=== PATIENT | female | born 1960 | race Caucasian/White ===

== ENCOUNTER → 2018-03-10 | Outpatient (CLI) | payer MEDICAID ==
[2018-03-10 11:52] LABS: BILIRUBIN,TOTAL 0.2 mg/dL (0.0-1.0); CHOLESTEROL RISK RATIO 4.1; CREATININE, serum 0.89 mg/dL (0.52-1.25); TOTAL PROTEIN 7.2 gm/dL (6.4-8.2)
[2018-03-11 00:09] LABS: URINE MICROALBUMIN 31.2 mg/dL (0.0-1.7)
== END ==
LOC: COL.LAB 10:53
PROVIDERS: Internal Medicine Cardiovascular Disease
DX: E11.65 Type 2 diabetes mellitus with hyperglycemia (principal); E11.29 Type 2 diabetes mellitus with other diabetic kidney complication; E78.01 Familial hypercholesterolemia; I25.10 Atherosclerotic heart disease of native coronary artery without angina pectoris; Z79.4 Long term (current) use of insulin

== ENCOUNTER 2018-03-19 19:05 | Emergency (ER) | payer MEDICAID ==
[~2018-03-19] VITALS: Ht 162.6 cm; Wt 98.2 kg
[2018-03-19 19:07] VITALS: TEMP 98.7
[2018-03-19] MEDS ORDERED: LIORESAL 1010 MG/TAB PO (19:41)
[2018-03-19] MEDS ORDERED: LANTUS SOLOS100 U/ML SQ (19:41)
[2018-03-19] MEDS ORDERED: PROAIR HFA0.09 MG/AC IH (19:41)
[2018-03-19] MEDS ORDERED: PRILOSEC 20MG20 MG PO (19:42)
[2018-03-19] MEDS ORDERED: NORVASC 10MG10 MG PO (19:42)
[2018-03-19] MEDS ORDERED: NOVOLOG FLEX100 U/ML SQ (19:42)
[2018-03-19] MEDS ORDERED: ZESTORETIC 25 M1 TAB PO (19:42)
[2018-03-19] MEDS ORDERED: REPATHA SU140 MG/1 M SQ (19:42)
[2018-03-19] MEDS ORDERED: EFFEXOR-XR150 MG PO (19:43)
[2018-03-19] MEDS ORDERED: ASPIRIN E.C. 8181 MG PO (19:43)
[2018-03-19] MEDS ORDERED: LYRICA 50MG CAP50 MG PO (19:43)
[2018-03-19 20:17] VITALS: BP 192/86; PULSE 83
== END 2018-03-19 20:19 | disposition home or self-care (01) ==
LOC: COL.ER 19:05
DX: T25.212A Burn of second degree of left ankle, initial encounter (principal); E11.9 Type 2 diabetes mellitus without complications; I10 Essential (primary) hypertension; M79.7 Fibromyalgia; E78.5 Hyperlipidemia, unspecified; F17.210 Nicotine dependence, cigarettes, uncomplicated; F43.10 Post-traumatic stress disorder, unspecified; J45.909 Unspecified asthma, uncomplicated; Z23 Encounter for immunization; Z88.1 Allergy status to other antibiotic agents; Z79.4 Long term (current) use of insulin; X19.XXXA Contact with other heat and hot substances, initial encounter; Y92.009 Unspecified place in unspecified non-institutional (private) residence as the place of occurrence of the external cause

== ENCOUNTER → 2018-05-03 | Outpatient (CLI) | payer MEDICAID ==
[~2018-05-03] MED LIST: ASPIRIN E.C. 8181 MG PO; EFFEXOR-XR150 MG PO; LANTUS SOLOS100 U/ML SQ; LIORESAL 1010 MG/TAB PO; LYRICA 50MG CAP50 MG PO; NORVASC 10MG10 MG PO; NOVOLOG FLEX100 U/ML SQ; PRILOSEC 20MG20 MG PO; PROAIR HFA0.09 MG/AC IH; REPATHA SU140 MG/1 M SQ; ZESTORETIC 25 M1 TAB PO
== END ==
LOC: ZCOL.LAB 17:12
DX: L02.31 Cutaneous abscess of buttock (principal)

== ENCOUNTER 2018-06-24 20:02 | Emergency (ER) | payer MEDICAID ==
[~2018-06-24] VITALS: Ht 162.6 cm; Wt 97.7 kg
[2018-06-24 20:06] VITALS: BP 177/81; TEMP 98.6
[2018-06-24 20:45] LABS: BASO # 0.1 (0.0-0.2); BASO % 0.6 % (0.0-2.0); EOS # 0.2 (0.0-0.7); EOS % 1.9 % (0-4.0); GRAN # 6.6 (1.4-6.5); GRAN % 61.3 % (42.2-75.2); HEMATOCRIT 43.4 % (37.0-47.0); HEMOGLOBIN 14.5 g/dl (12.5-16.0); LYMPH # 3.1 (1.2-3.4); LYMPH % 29.1 % (20.0-51.0); MEAN CELL VOLUME 90 fl (80.0-100.0); MEAN CORPUSCULAR HEMOGLOBIN 30 pg (27.0-31.0); MEAN CORPUSCULAR HGB CONC 33 g/dl (33.0-37.0); MEAN PLATELET VOLUME 12.1 fl (7.4-10.4); MONO # 0.7 (0.1-0.6); MONO % 6.8 % (1.7-9.3); PLATELET COUNT 206 K/mm3 (130-400); RED BLOOD COUNT 4.83 M/mm3 (4.10-5.30); REDCELL DISTRIBUTION WIDTH-CV 12.9 % (11.5-14.5)
[2018-06-24 20:56] LABS: BILIRUBIN,TOTAL 0.5 mg/dL (0.0-1.0); CALCIUM 9.7 mg/dL (8.4-10.2); CREATININE, serum 0.91 mg/dL (0.52-1.25); POTASSIUM 3.8 mmol/L (3.4-5.0); TOTAL PROTEIN 7.2 gm/dL (6.4-8.2)
[2018-06-24 21:55] LABS: COLLECTION METHOD CLEAN CATCH
[2018-06-24 22:00] LABS: PH 5 (5-8); SQUAMOUS EPITHELIAL 0-2 /hpf; URINE APPEARANCE Clear; URINE BACTERIA Rare /hpf; URINE BILIRUBIN Negative (NEGATIVE); URINE BLOOD 1+ (NEGATIVE); URINE COLOR Yellow; URINE GLUCOSE Negative (NEGATIVE); URINE KETONE Negative (NEGATIVE); URINE LEUKOCYTE ESTERASE Negative (NEGATIVE); URINE NITRATE Negative (NEGATIVE); URINE PROTEIN(semi-quant) 2+ (NEGATIVE); URINE RBC 0-2 /hpf; URINE UROBILINOGEN Negative (NEGATIVE)
[2018-06-24] MEDS ORDERED: ZOFRAN ODT4 MG PO (22:55)
[2018-06-24] MEDS ORDERED: ULTRAM 50MG TAB50 MG PO (22:55)
[2018-06-24 23:05] VITALS: PULSE 84
== END 2018-06-24 23:05 | disposition home or self-care (01) ==
LOC: COL.ER 20:02
PROVIDERS: Emergency Medicine
DX: S39.011A Strain of muscle, fascia and tendon of abdomen, initial encounter (principal); E11.9 Type 2 diabetes mellitus without complications; I25.10 Atherosclerotic heart disease of native coronary artery without angina pectoris; I10 Essential (primary) hypertension; E78.5 Hyperlipidemia, unspecified; Z86.718 Personal history of other venous thrombosis and embolism; F17.210 Nicotine dependence, cigarettes, uncomplicated; X50.0XXA Overexertion from strenuous movement or load, initial encounter; Z79.4 Long term (current) use of insulin; Y92.096 Garden or yard of other non-institutional residence as the place of occurrence of the external cause

== ENCOUNTER → 2018-11-27 | Outpatient (CLI) | payer MEDICAID ==
[~2018-11-27] MED LIST changes: +ULTRAM 50MG TAB50 MG PO; +ZOFRAN ODT4 MG PO
== END ==
LOC: ZCOL.LAB 17:09
DX: R35.0 Frequency of micturition (principal)

== ENCOUNTER 2018-12-01 21:35 | Emergency (ER) | payer MEDICAID ==
[~2018-12-01] VITALS: Ht 162.6 cm; Wt 95.5 kg
[2018-12-01 21:40] VITALS: TEMP 97.8
[2018-12-01 22:28] LABS: BASO # 0.1 (0.0-0.2); EOS # 0.3 (0.0-0.7); EOS % 2.5 % (0-4.0); GRAN # 5.5 (1.4-6.5); HEMOGLOBIN 15.6 g/dl (12.5-16.0); LYMPH # 3.7 (1.2-3.4); LYMPH % 35.5 % (20.0-51.0); MEAN CELL VOLUME 92 fl (80.0-100.0); MEAN CORPUSCULAR HEMOGLOBIN 30 pg (27.0-31.0); MEAN CORPUSCULAR HGB CONC 33 g/dl (33.0-37.0); MEAN PLATELET VOLUME 12.1 fl (7.4-10.4); MONO # 0.8 (0.1-0.6); MONO % 7.8 % (1.7-9.3); PLATELET COUNT 241 K/mm3 (130-400); RED BLOOD COUNT 5.24 M/mm3 (4.10-5.30); REDCELL DISTRIBUTION WIDTH-CV 12.6 % (11.5-14.5)
[2018-12-01 22:37] LABS: ALANINE AMINOTRANSFERASE 13 U/L (9-52); ALBUMIN 4.2 gm/dL (3.5-5.0); ALKALINE PHOSPHATASE 93 U/L (50-136); ANION GAP 10 mmol/L (7-16); AST,SGOT 21 U/L (15-37); BILIRUBIN,TOTAL 0.3 mg/dL (0.0-1.0); BLOOD UREA NITROGEN 15 mg/dL (7-17); CALCIUM 9.5 mg/dL (8.4-10.2); CARBON DIOXIDE 29 mmol/L (22-30); CHLORIDE 103 mmol/L (98-107); CREATININE, serum 1.07 (0.52-1.25); GLUCOSE 161 mg/dL (74-106); SODIUM 143 mmol/L (137-145); TOTAL PROTEIN 7.6 gm/dL (6.4-8.2)
[2018-12-01 22:48] LABS: TROPONIN-I < 0.012 ng/mL (0.000-0.035)
[2018-12-01 23:02] LABS: INR 0.9 (0.8-3.0); PROTHROMBIN TIME 10.6 SECONDS (9.7-12.8)
[2018-12-02 01:15] VITALS: BP 161/84; PULSE 66
== END 2018-12-02 01:25 | disposition home or self-care (01) ==
LOC: COL.ER 21:35
PROVIDERS: Emergency Medicine
DX: I10 Essential (primary) hypertension (principal); R07.89 Other chest pain; J44.9 Chronic obstructive pulmonary disease, unspecified; E78.5 Hyperlipidemia, unspecified; F17.210 Nicotine dependence, cigarettes, uncomplicated; Z95.5 Presence of coronary angioplasty implant and graft; Z79.82 Long term (current) use of aspirin; Z79.4 Long term (current) use of insulin
CPT/HCPCS: J2405; Q9967

== ENCOUNTER 2018-12-04 16:00 | Emergency (ER) | payer MEDICAID ==
[~2018-12-04] VITALS: Ht 162.6 cm; Wt 93.2 kg
[2018-12-04 16:07] VITALS: TEMP 97
[2018-12-04 16:45] LABS: COLLECTION METHOD CLEAN CATCH
[2018-12-04 16:49] LABS: BASO # 0.1 (0.0-0.2); BASO % 0.3 % (0.0-2.0); EOS # 0.1 (0.0-0.7); EOS % 0.5 % (0-4.0); GRAN # 13.4 (1.4-6.5); GRAN % 80.1 % (42.2-75.2); HEMATOCRIT 50.9 % (37.0-47.0); HEMOGLOBIN 16.8 g/dl (12.5-16.0); LYMPH # 2.3 (1.2-3.4); LYMPH % 13.9 % (20.0-51.0); MEAN CELL VOLUME 92 fl (80.0-100.0); MEAN CORPUSCULAR HEMOGLOBIN 30 pg (27.0-31.0); MEAN CORPUSCULAR HGB CONC 33 g/dl (33.0-37.0); MEAN PLATELET VOLUME 12.2 fl (7.4-10.4); MONO # 0.8 (0.1-0.6); MONO % 4.8 % (1.7-9.3); PLATELET COUNT 237 K/mm3 (130-400); RED BLOOD COUNT 5.55 M/mm3 (4.10-5.30); REDCELL DISTRIBUTION WIDTH-CV 12.6 % (11.5-14.5)
[2018-12-04 16:55] LABS: PH 5 (5-8); SQUAMOUS EPITHELIAL 0-2 /hpf; URINE APPEARANCE Clear; URINE BACTERIA Rare /hpf; URINE BILIRUBIN Negative (NEGATIVE); URINE BLOOD 1+ (NEGATIVE); URINE COLOR Yellow; URINE GLUCOSE 3+ (NEGATIVE); URINE KETONE Negative (NEGATIVE); URINE LEUKOCYTE ESTERASE Negative (NEGATIVE); URINE NITRATE Negative (NEGATIVE); URINE PROTEIN(semi-quant) 1+ (NEGATIVE); URINE RBC 0-2 /hpf; URINE UROBILINOGEN Negative (NEGATIVE)
[2018-12-04 17:05] LABS: ALANINE AMINOTRANSFERASE 8 U/L (9-52); ALBUMIN 4.2 gm/dL (3.5-5.0); ALKALINE PHOSPHATASE 80 U/L (50-136); ANION GAP 11 mmol/L (7-16); AST,SGOT 27 U/L (15-37); BILIRUBIN,TOTAL 0.3 mg/dL (0.0-1.0); BLOOD UREA NITROGEN 21 mg/dL (7-17); C-REACTIVE PROTEIN 1.5 mg/dL (0.0-0.9); CALCIUM 9.3 mg/dL (8.4-10.2); CARBON DIOXIDE 29 mmol/L (22-30); CHLORIDE 100 mmol/L (98-107); CREATININE, serum 0.98 (0.52-1.25); GLUCOSE 197 mg/dL (74-106); POTASSIUM 4.4 mmol/L (3.4-5.0); SODIUM 140 mmol/L (137-145); TOTAL PROTEIN 7.7 gm/dL (6.4-8.2)
[2018-12-04 17:24] LABS: TROPONIN-I < 0.012 ng/mL (0.000-0.035)
[2018-12-04] MEDS ORDERED: ANTIVERT 25MG25 MG PO (18:26)
[2018-12-04 18:51] VITALS: BP 132/76; PULSE 80
== END 2018-12-04 18:53 | disposition home or self-care (01) ==
LOC: COL.ER 16:00
PROVIDERS: Emergency Medicine
DX: D72.829 Elevated white blood cell count, unspecified (principal); R42 Dizziness and giddiness; E11.9 Type 2 diabetes mellitus without complications; I10 Essential (primary) hypertension; F17.210 Nicotine dependence, cigarettes, uncomplicated; Z79.4 Long term (current) use of insulin; Z79.82 Long term (current) use of aspirin
CPT/HCPCS: J2060; J2405; J7030

== ENCOUNTER → 2019-02-07 | Outpatient (CLI) | payer MEDICAID ==
[~2019-02-07] MED LIST changes: +ANTIVERT 25MG25 MG PO
== END ==
LOC: COL.RAD 14:47
DX: J44.9 Chronic obstructive pulmonary disease, unspecified (principal)

== ENCOUNTER → 2019-02-15 | Outpatient (CLI) | payer MEDICAID | LOC: COL.PUL 07:55 | DX: F17.200 Nicotine dependence, unspecified, uncomplicated (principal) ==

== ENCOUNTER → 2019-02-19 | Outpatient (CLI) | payer MEDICAID | LOC: MC.RAD 15:44 | DX: Z12.31 Encounter for screening mammogram for malignant neoplasm of breast (principal) ==

== ENCOUNTER 2019-03-11 00:06 | Emergency (ER) | payer MEDICAID ==
[~2019-03-11] VITALS: Ht 157.5 cm; Wt 90.9 kg
[~2019-03-11 00:06] MED LIST changes: -HUMALOG PEN100 U/ML SQ; -PLAVIX 75MG TAB75 MG PO
[2019-03-11 00:13] VITALS: BP 142/63; TEMP 96.7
[2019-03-11] MEDS ORDERED: HUMALOG PEN100 U/ML SQ (01:18)
[2019-03-11] MEDS ORDERED: LANTUS SOLOS100 U/ML SQ (01:19)
[2019-03-11] MEDS ORDERED: PLAVIX 75MG TAB75 MG PO (02:20)
[2019-03-11 02:53] VITALS: PULSE 82
== END 2019-03-11 02:58 | disposition home or self-care (01) ==
LOC: COL.ER 00:06
DX: M79.662 Pain in left lower leg (principal); E11.9 Type 2 diabetes mellitus without complications; F43.10 Post-traumatic stress disorder, unspecified; F32.9 Major depressive disorder, single episode, unspecified; J45.909 Unspecified asthma, uncomplicated; F17.210 Nicotine dependence, cigarettes, uncomplicated; Z79.4 Long term (current) use of insulin; Z90.710 Acquired absence of both cervix and uterus; X50.1XXA Overexertion from prolonged static or awkward postures, initial encounter
CPT/HCPCS: J1650; J1885

== ENCOUNTER → 2019-03-11 | Outpatient (CLI) | payer MEDICAID ==
[~2019-03-11] MED LIST changes: +HUMALOG PEN100 U/ML SQ; +PLAVIX 75MG TAB75 MG PO
== END ==
LOC: COL.RAD 09:16
DX: M79.605 Pain in left leg (principal); R79.1 Abnormal coagulation profile

== ENCOUNTER → 2019-03-28 | Outpatient (CLI) | payer MEDICAID ==
[~2019-03-28] VITALS: Ht 163.8 cm; Wt 97.0 kg
[~2019-03-28] MED LIST changes: +HUMALOG PEN100 U/ML SQ; +PLAVIX 75MG TAB75 MG PO
[2019-03-28 10:40] VITALS: BP 199/97; PULSE 80
[2019-03-28 12:11] VITALS: BP 172/72; PULSE 84
[2019-03-28 12:12] VITALS: BP 165/80; PULSE 78
[2019-03-28 12:13] VITALS: BP 173/79; PULSE 75
[2019-03-28 12:14] VITALS: BP 148/65; PULSE 76
== END ==
LOC: COL.CARD 10:31
DX: R07.9 Chest pain, unspecified (principal); R06.02 Shortness of breath; I10 Essential (primary) hypertension
CPT/HCPCS: A9500; J2785

== ENCOUNTER 2019-05-14 08:00 | Day surgery (SDC) | payer MEDICAID ==
[2019-05-14] VITALS (11 sets, daily range): BP systolic 130–179; BP diastolic 62–102; PULSE 69–75; TEMP 98.3
[~2019-05-14] VITALS: Ht 165.1 cm; Wt 95.6 kg
[2019-05-14 08:51] LABS: HEMATOCRIT 45.5 % (37.0-47.0); HEMOGLOBIN 15.2 g/dl (12.5-16.0); MEAN CELL VOLUME 90 fl (80.0-100.0); MEAN CORPUSCULAR HEMOGLOBIN 30 pg (27.0-31.0); MEAN CORPUSCULAR HGB CONC 33 g/dl (33.0-37.0); MEAN PLATELET VOLUME 11.9 fl (7.4-10.4); PLATELET COUNT 222 K/mm3 (130-400); RED BLOOD COUNT 5.04 M/mm3 (4.10-5.30); REDCELL DISTRIBUTION WIDTH-CV 12.6 % (11.5-14.5)
[2019-05-14 08:56] LABS: INR 0.9 (0.8-3.0); PROTHROMBIN TIME 10.7 SECONDS (9.7-12.8)
[2019-05-14 08:59] LABS: PARTIAL THROMBOPLASTIN TIME 30.7 SECONDS (26.0-37.0)
[2019-05-14 09:20] LABS: CALCIUM 8.9 mg/dL (8.4-10.2); CREATININE, serum 0.89 (0.52-1.25); POTASSIUM 4.3 mmol/L (3.4-5.0)
[2019-05-14] MEDS ORDERED: BUSPAR5 MG PO (09:33)
[2019-05-14] MEDS ORDERED: LIPITOR 80MG80 MG PO (09:33)
[2019-05-14] MEDS ORDERED: NYSTATIN POWDER30 GM TOP (09:35)
[2019-05-14] MEDS ORDERED: LIORESAL 1010 MG/TAB PO (09:35)
[2019-05-14] MEDS ORDERED: COREG 3.123.125 MG/T PO (09:36)
[2019-05-14] MEDS ORDERED: LYRICA 100MG C100 M1 PO (09:37)
[2019-05-14] MEDS ORDERED: OZEMPIC1 MG/0.75 SQ (09:38)
[2019-05-14] MEDS ORDERED: HCTZ 25MG TAB25 MG PO (09:40)
[2019-05-14] MEDS ORDERED: FOLIC ACID 11 MG/TA1 PO (09:41)
[2019-05-14] MEDS ORDERED: COZAAR 50MG50 MG/TAB PO (09:41)
--- NOTE | 2019-05-14 10:44 | NUR ---
SEE MERGE DOCUMENTATION FOR MEDICATION ADMINISTRATION TIMES AND INTRA/POST PROCEDURE SEDATION ASSESSMENTS.
--- NOTE | 2019-05-14 11:50 | NUR ---
pt is back from photo lab manager, pt is awake and alert, p,w,d, sr 70's on monitor, rt femoral access dressed with dry and clean gauze dressing with tegaderm, angioseal closure device employed. cms intact to rle with no bleeding or hematoma noted. wctm
--- NOTE | 2019-05-14 15:15 | NUR ---
Pt is ready for discharge. she has been able to void with no problem on the bedpan, has been able to eat and drink with no problem. after 3 hrs bedrest, pt was able to sit at edge of bed, ambulate to br with steady gait without any bleeding or hematoma formation at rt groin site. cms remains intact distal. I reviewed dc, and f/u instructions with pt and she denied any concerns at time of departure. 20g saline lock to lac was dc'd with cath intact, dressing was applied. She is escorted to exit via wheelchair, son driving her home.
== END 2019-05-14 17:44 | disposition home or self-care (01) ==
LOC: COL.CAR 08:00
PROVIDERS: Internal Medicine Cardiovascular Disease
DX: I25.10 Atherosclerotic heart disease of native coronary artery without angina pectoris (principal); F17.210 Nicotine dependence, cigarettes, uncomplicated; F17.200 Nicotine dependence, unspecified, uncomplicated; E11.9 Type 2 diabetes mellitus without complications; Z79.4 Long term (current) use of insulin; Z79.899 Other long term (current) drug therapy; Z79.02 Long term (current) use of antithrombotics/antiplatelets
CPT/HCPCS: J0153; J1644; J2250; J3010; Q9967

== ENCOUNTER 2019-08-31 18:52 | Emergency (ER) | payer MEDICAID ==
[~2019-08-31] VITALS: Ht 162.6 cm; Wt 95.5 kg
[~2019-08-31 18:52] MED LIST changes: +BUSPAR5 MG PO; +COREG 3.123.125 MG/T PO; +COZAAR 50MG50 MG/TAB PO; +FOLIC ACID 11 MG/TA1 PO; +HCTZ 25MG TAB25 MG PO; +LIPITOR 80MG80 MG PO; +LYRICA 100MG C100 M1 PO; +MUCINEX1200 MG PO; +NYSTATIN POWDER30 GM TOP; +OZEMPIC1 MG/0.75 SQ; +TESSALON P100 MG/CAP PO; +ZYRTEC 10MG10 MG PO
[2019-08-31 19:14] VITALS: BP 179/75; TEMP 98.1
[2019-08-31] MEDS ORDERED: NAPROXEN 3375 MG/TAB PO (19:48)
[2019-08-31] MEDS ORDERED: NORCO 325 MG-51 TAB PO (19:48)
[2019-08-31 20:18] VITALS: PULSE 81
== END 2019-08-31 20:20 | disposition home or self-care (01) ==
LOC: COL.ER 18:52
DX: M54.42 Lumbago with sciatica, left side (principal); E11.9 Type 2 diabetes mellitus without complications; Z79.4 Long term (current) use of insulin; Z79.82 Long term (current) use of aspirin
CPT/HCPCS: J1885

== ENCOUNTER 2019-10-17 14:06 | Emergency (ER) | payer MEDICAID ==
[~2019-10-17] VITALS: Ht 162.6 cm; Wt 90.9 kg
[~2019-10-17 14:06] MED LIST changes: +NAPROXEN 3375 MG/TAB PO; +NORCO 325 MG-51 TAB PO
[2019-10-17 14:14] VITALS: TEMP 98
[2019-10-17] MEDS ORDERED: CRUTCHES MC (15:30)
[2019-10-17 15:45] VITALS: BP 136/82; PULSE 87
== END 2019-10-17 15:45 | disposition home or self-care (01) ==
LOC: COL.ER 14:06
DX: S90.32XA Contusion of left foot, initial encounter (principal); I10 Essential (primary) hypertension; E11.9 Type 2 diabetes mellitus without complications; J45.909 Unspecified asthma, uncomplicated; E78.5 Hyperlipidemia, unspecified; F17.210 Nicotine dependence, cigarettes, uncomplicated; Z79.4 Long term (current) use of insulin; W20.8XXA Other cause of strike by thrown, projected or falling object, initial encounter; Y92.009 Unspecified place in unspecified non-institutional (private) residence as the place of occurrence of the external cause

== ENCOUNTER 2021-08-02 15:37 | Inpatient (IN) | payer MEDICAID ==
[~2021-08-02] VITALS: Ht 157.5 cm; Wt 82.7 kg
[~2021-08-02 15:37] MED LIST changes: +CRUTCHES MC
[2021-08-02 16:31] LABS: COLLECTION METHOD CATHETER
[2021-08-02 16:40] LABS: MUCOUS Present (NOT PRESENT); PH 5 (5-8); SQUAMOUS EPITHELIAL 0-2 /hpf (0-10); URINE APPEARANCE Turbid (CLEAR/HAZY); URINE BACTERIA Occasional /hpf (NONE SEEN); URINE BILIRUBIN Negative (NEGATIVE); URINE BLOOD Negative (NEGATIVE); URINE COLOR Amber (YELLOW); URINE GLUCOSE 1+ (NEGATIVE); URINE KETONE Negative (NEGATIVE); URINE LEUKOCYTE ESTERASE 3+ (NEGATIVE); URINE NITRATE Positive (NEGATIVE); URINE PROTEIN(semi-quant) 3+ (NEGATIVE); URINE UROBILINOGEN >=4.0 (NEGATIVE)
[2021-08-02 16:52] LABS: MEAN CELL VOLUME 80 fl (80.0-100.0); MEAN CORPUSCULAR HGB CONC 30 g/dl (33.0-37.0); MEAN PLATELET VOLUME 12.2 fl (7.4-10.4); PLATELET COUNT 420 K/mm3 (130-400); RED BLOOD COUNT 3.11 M/mm3 (4.10-5.30); REDCELL DISTRIBUTION WIDTH-CV 18.5 % (11.5-14.5)
[2021-08-02 16:54] LABS: HEMOGLOBIN 7.4 g/dl (12.5-16.0); MEAN CORPUSCULAR HEMOGLOBIN 24 pg (27-31)
[2021-08-02 17:09] LABS: ALBUMIN 1.3 gm/dL (3.4-4.8); BILIRUBIN,TOTAL 0.6 mg/dL (0.2-1.2); CALCIUM 8.1 mg/dL (8.4-10.2); CREATININE, serum 0.85 mg/dL (0.57-1.11); POTASSIUM 3.3 mmol/L (3.5-4.5); TOTAL PROTEIN 6.1 gm/dL (6.2-8.1)
[2021-08-02 17:10] LABS: BAND 12 % (0-10); EOSINOPHIL 1 % (0-4); LYMPHOCYTE 7 % (20.0-51.0); NEUTROPHILS 74 % (42.0-75.2); PLATELET ESTIMATE INCREASED (NORMAL)
[2021-08-02 17:11] LABS: ANISOCYTOSIS 1+; HYPOCHROMIA 2+; MICROCYTOSIS 1+
[2021-08-02 17:15] LABS: TROPONIN-I 0.01 ng/mL (0.00-0.033)
[2021-08-02] MEDS ORDERED: PRINIVIL10 MG PO (18:04)
[2021-08-02] MEDS ORDERED: TAZTIA180 (18:07)
[2021-08-02] MEDS ORDERED: BUSPAR DIVIDOSE15 MG PO (18:08)
[2021-08-02] MEDS ORDERED: BUSPAR DIVIDOSE15 MG (18:08)
[2021-08-02] MEDS ORDERED: NEURONTIN100 MG/CAP PO ×2 (18:09→23:38)
[2021-08-02 19:18] LABS: MAGNESIUM 1.9 mg/dL (1.6-2.6)
[2021-08-02 19:20] LABS: SALICYLATE < 5.0 mg/dL (15.0-30.0)
--- NOTE | 2021-08-02 21:06 | NUR ---
PT TRANSFERED FROM ED TO ROOM 313.
[2021-08-02 21:09] VITALS: BP 140/52; PULSE 76; TEMP 98
--- NOTE | 2021-08-02 21:12 | NUR ---
Pt blood sugar 70, notified provider. Verbal orders to implement hypoglycemic protocol.
[2021-08-02 21:50] LABS: INR 1.6 (0.8-3.0); PROTHROMBIN TIME 17.8 SECONDS (9.7-12.8)
[2021-08-02] MEDS ORDERED: CARDIZEM CD 12120 MG PO (22:42)
[2021-08-02] MEDS ORDERED: LYRICA 100MG C100 M1 PO (22:46)
[2021-08-02] MEDS ORDERED: NEXIUM 20MG20 MG PO (22:47)
[2021-08-02] MEDS ORDERED: JANUVIA 100MG100 MG PO (22:49)
[2021-08-02] MEDS ORDERED: IMDUR 30MG30 MG/TAB PO (22:51)
[2021-08-02] MEDS ORDERED: TRELEGY ELLIPT1 EACH IH (22:52)
[2021-08-02] MEDS ORDERED: VESICARE10 MG PO (22:53)
[2021-08-02 23:32] VITALS: BP 158/60; PULSE 89; TEMP 97.6
[2021-08-03] VITALS (9 sets, daily range): BP systolic 138–161; BP diastolic 55–67; PULSE 86–106; TEMP 97.5–98.8
--- NOTE | 2021-08-03 00:23 | NUR ---
Pt moved to floor from ED around 2100. Utilized sliding board and a 4 person assist to slide pt from [facility] over to bed. Pt is lethargic and drowsy. When asked to tell her name/birthday or where she is she does not respond, but will open her eyes to speech.sound. Pt will answer some questions and not answer others. It was difficult to fully complete the assessment intake because pt would not answer many questions. Spoke with the pt's "" (is what he titled himself) on the phone. He appeared to be quite upset and discussed the pt's recent health issues. Stated pt was in a care home after recently leaving [facility] and that the pt had 3 falls, in which she had to crawl back to her bed by herself. States he now has the pt living at home with him since 07/30 and has contacted adult protective servies in regards to the care home. I also spoke witht the pt's sister Kaylyn, who wanted an update. I attempted to contact the pt's daughter Rosa jimenez, in regards to the pt's code status. It was reported to me that she is the pt's DPOA. Completed the intake assessment and admission assessment. COVID screen and infectious disease completed. Reviewed med rx with provider, as well as with what medications the was sent in with. According to the , the pt is on more medications that what was brought, or some of the medications brought with her are incorrect. Stated he would bring an updated list. Pt is unable to answer any questions in regards to her medications. Pt has been made NPO, because she is not awake enough to orally take anything. Vital signs were stable on arrival, FSBS was 70. Notified provider, who ordered D5 with 20 mEq of potassium to be hung and ran. Reassessed pt's sugar and it increased to 91. No significant skin issues noted. Noted some generalized scattered bruising on the BLE/BUE. No edema noted. Lung sounds are clear. S1S2 heart sounds noted. Hypoactive bowel sounds. Abdomen is soft, but pt grimmaced slightly to palpation. When I asked pt if she was in pain she denied. No edema noted. Pt is incontinent of bowel and bladder. Pt has had 1 heavy incontinent void so far into brief. Urine was yellow. Placed purewick on pt to get a more accurate I&O. Pt remains NPO. Pt is able to follow commands, such as squeezing hands, but falls back asleep quickly. Can move self around in bed slightly. Will continue to turn pt every 2 hours. Q4 neuro checks continue and Q4 blood sugar checks continue. Pt is satting in 90's on 4L NC. Was reported that this is baseline for pt at home and that she wears a CPAP at night. Pt currently is resting with CPAP on. Will continue to monitor.
--- NOTE | 2021-08-03 03:53 | NUR ---
Pt has not had another void since 2352. Pt was bladder scanned by clinical nursing manager, and found that pt has 375 in bladder. Notified the provider. Provider made no changes/interventions at this time. Will continue to monitor.
--- NOTE | 2021-08-03 05:11 | NUR ---
Pt remains in a lethargic/drowsy state this morning, as well as overnight. Opens eyes to speech/sound, but quickly falls back asleep. Pt only answers a few questions. Is able to nod head to respond. Speech is difficult to understand. Blood sugars have remained stable, last sugar was 122. Vital signs stable. HR 70-80's. BP running a little elevated. RR 16-18. Pt remains on 4L NC. Wore CPAP machine from home overnight. O2 sats remain above 90% overnight. D5 with 20 mEq of potassium continues to run. Pt remains NPO, is not awake enough for oral intake. Still have not heard back from Lora (daughter/DPOA) regarding the pt's code status. Pt only had one large void overnight around 0000. Notified provider and no new changes were made, will continue to watch UO. No new concerns, will continue to monitor.
--- NOTE | 2021-08-03 06:34 | NUR ---
Notified Dr. Busby of oncology consult.
--- NOTE | 2021-08-03 06:58 | NUR ---
Pt had 375 out into [facility].
[2021-08-03 07:05] LABS: MEAN CELL VOLUME 80 fl (80.0-100.0); MEAN CORPUSCULAR HGB CONC 29 g/dl (33.0-37.0); MEAN PLATELET VOLUME 12.6 fl (7.4-10.4); PLATELET COUNT 411 K/mm3 (130-400); RED BLOOD COUNT 2.86 M/mm3 (4.10-5.30); REDCELL DISTRIBUTION WIDTH-CV 18.6 % (11.5-14.5)
[2021-08-03 07:10] LABS: HEMOGLOBIN 6.7 g/dl (12.5-16.0); MEAN CORPUSCULAR HEMOGLOBIN 23 pg (27-31)
[2021-08-03 07:21] LABS: ALBUMIN 1.2 gm/dL (3.4-4.8); CALCIUM 7.6 mg/dL (8.4-10.2); CREATININE, serum 0.81 mg/dL (0.57-1.11); POTASSIUM 3.5 mmol/L (3.5-4.5); TOTAL PROTEIN 5.7 gm/dL (6.2-8.1)
[2021-08-03 07:47] LABS: BILIRUBIN,TOTAL 0.6 mg/dL (0.2-1.2)
[2021-08-03 08:05] LABS: BAND 12 % (0-10); EOSINOPHIL 1 % (0-4); HYPOCHROMIA 2+; LYMPHOCYTE 4 % (20.0-51.0); NEUTROPHILS 77 % (42.0-75.2); PLATELET ESTIMATE NORMAL (NORMAL)
[2021-08-03 08:06] LABS: ANISOCYTOSIS 2+; OVALOCYTES 1+
--- NOTE | 2021-08-03 11:44 | NUR ---
Call made to patient's daughter and DPOA, Rosa ([phone]). She confirmed she lives in [place] and will not be coming back unless the patient takes a turn for the worse. She is under the impression that her mother has stage 2 pancreatic cancer with liver involvement and that she was admitted here for being unresponsive for her father at home. We discussed her mother's current status and Katia confirmed that her mother would wish to be a full code and persue treatment if available. We discussed that in her current state, she is not a chemo candidate. Rosa verbalized understanding and we discussed if we continue the current treatment plan here or if we need to discuss hospice. Rosa would like to continue treatment for a few days to see if her mother has an improvement but if not, is willing to talk more about hospice. Rosa is also concerned that her father would really like the patient to be cared for at home. We discussed that in her current state, she would need 24/7 care and if Will is unable to provide that, he would need to hire someone to fill in. Rosa states that is not financially manageable. She also asked if she would be able to have her mother placed in a facility since she is DPOA. I explained that if her mother is unable to make a decision about placement for herself, that would fall to her as her DPOA. Katia expressed concern that she will need to fight her dad on that and I offered to call and talk with him. She verbalized agreeance of that plan. I also offered to have the hospitalist call her with an update today and she again verbalized acceptance of that. Discussed conversation with care team and SW.
--- NOTE | 2021-08-03 11:51 | NUR ---
Call made to patient's , Jose ([phone]). He is very frustrated with the care Michelle has received at other facilities. He also states that he doesn't have a great relationship with his daughter, Lora. I encouraged him to attempt to talk with Lora about Michelle's condition and wishes. He told me that they only got d/t social security issues and that they have remained together and he has cared for her as best he could. He reports that he has set up home health equipment and would only need a hospital bed if he were to be able to bring the patient home again. He mentioned he hurt his back so we discussed that the patient requires extensive physical care at this time so home may not be a safe options for both of them. We also discussed the hospice house if the patient doesn't make any improvements. He is happy to have me keep him updated and see how she does. He understands that decisions are going to be made through his daughter and is not happy about it but is accepting of the situation. I gave him my contact information. Updated care team and SW of conversation.
--- NOTE | 2021-08-03 13:42 | NUR ---
PT DROWSY, RESTING IN BED. MEDICATIONS GIVEN PER eMAR. SHIFT ASSESSMENT COMPLETED. PT RESPONDS TO A FEW QUESTIONS, DOES NOT ANSWER ORIENTATION QUESTIONS. IS ABLE TO MOVE EXTREMITIES ON BED. CURRENTLY ON O2 AT 3L VIA NC. WILL CONTINUE TO MONITOR. PUREWICK IN PLACE. CONSENT FOR 1 UNIT PRBC OBTAINED FROM LOUISE DAUGHTER. PLAN TO TRANSFUSE SOON.
--- NOTE | 2021-08-03 15:57 | NUR ---
Selector Packer collaborated with Palliative, EVANS Evans who is consulted for patient. Cristina has talked with patient's family and they are interested in the [facility]. Patient is not a candidate for chemotherapy at this time. Cristina spoke with patient's daughter, Katia and patient's life partner, Jose. Will was upset that patient completed a DPOA-HC at [facility] designating their daughter, Katia. JUDIT contacted the [facility] and requested a copy of patient's DPOA-HC. SW received copy and placed it on the chart. SW confirmed it designates Katia. SW contacted Katia to discuss discharge planning. Katia advised patient lives in [place] with Will. Patient is not legally to Will, but they have been together for many years. Will is also Katia's father. Katia is not sure who patient's primary care physician is. Katia expressed interest in [facility] and advised this is where she and Will have agreed on. JUDIT contacted Adult Protective Services as Will had told the Hospitalist that APS has an open case for patient. [place] APS JUDIT advised she did not have a case with patient but would look her up once back in her office. JUDIT was contacted by Chris, Reservoir Caretaker with [facility] who advised he has been working with patient for quite some time and does not feel home is a safe option for patient, which he has expressed to Will. Chris advised that patient was in a hospital at [place] then discharged to [facility] on 07/29/21. Chris advised Will took patient out on 07/30/21 before patient was even there 24 hours. Chris advised Will reported patient had multiple falls at [facility] and that APS actually advised he take her home. Chris questions if this is accurate and that he and staff at [facility] made reports to APS with concerns about patient returning home. JUDIT contacted [facility] and faxed referral. Discharge Plan: [facility] pending acceptance
[2021-08-04] VITALS (7 sets, daily range): BP systolic 136–169; BP diastolic 48–73; PULSE 97–109; TEMP 97.4–98.4
--- NOTE | 2021-08-04 01:08 | NUR ---
Pt was more alert at the beginning of this evening, asleep now. Pt responded to more questions, such as if she was in pain or comfortable, but still cannot tell me her name or where she is. Pt only answers certain questions. Pt is still drowsy, in and out of sleep, sleeping currently. Pt is alert to speech/noise and follows commands. Pt has denied pain. Incontinent of bowel and bladder. Good urine output into the [facility] [place] cannister so far. Continuing to turn pt every 2 hours and perform incontinent care. Pt continues to have IV fluids running. Vital signs are stable. Blood sugars are elevated this evening at 224 and 222. Notified the provider, who had me decrease the D5 rate from 100 ml/hr to 50 ml/hr. Pt has had poor oral intake. Took only a few bites of dinner and was told in report she only took a few bites of lunch when encouraged. Encouraging frequent oral intake. Pt reports no questions. Will continue to monitor.
--- NOTE | 2021-08-04 05:07 | NUR ---
No significant changes overnight. Pt continues to be drowsy/sleeping all night. Does not respond to me when I ask where she is or what her name is, but responds if I ask her if she is in pain. Is alert to speech. Adueqtae urine output overnight. Encouraged fluid intake when possible. Pt when grimmacing this morning and moaning. I asked if she was in pain and she said "yes" and was grabbing her abdominal area. Administered prn tylenol and pt was able to comfortably fall back asleep, no new reports of pain this morning. Vital signs stable. BP runs elevated. Blood suagrs are still elevated. Pt is still continuing on the D5 with 20 mEq of potassium, but at a rate of 50 ml/hr instead of 100 ml/hr. Pt still has poor oral intake, will not eat/drink unless encouraged by staff. Pt was able to tolerate the PO tylenol pills and water well. Pt reports no questions. Will continue to monitor.
[2021-08-04 06:03] LABS: MEAN CELL VOLUME 80 fl (80.0-100.0); MEAN CORPUSCULAR HGB CONC 30 g/dl (33.0-37.0); MEAN PLATELET VOLUME 12.2 fl (7.4-10.4); PLATELET COUNT 389 K/mm3 (130-400); RED BLOOD COUNT 3.36 M/mm3 (4.10-5.30); REDCELL DISTRIBUTION WIDTH-CV 17.3 % (11.5-14.5)
[2021-08-04 06:10] LABS: HEMATOCRIT 26.8 % (37.0-47.0); HEMOGLOBIN 8.1 g/dl (12.5-16.0); MEAN CORPUSCULAR HEMOGLOBIN 24 pg (27-31)
[2021-08-04 06:36] LABS: ALBUMIN 1.2 gm/dL (3.4-4.8); CALCIUM 7.5 mg/dL (8.4-10.2); CREATININE, serum 0.77 mg/dL (0.57-1.11); POTASSIUM 3.8 mmol/L (3.5-4.5); TOTAL PROTEIN 5.6 gm/dL (6.2-8.1)
[2021-08-04 06:49] LABS: BAND 4 % (0-10); EOSINOPHIL 1 % (0-4); LYMPHOCYTE 4 % (20.0-51.0)
[2021-08-04 06:50] LABS: ANISOCYTOSIS 2+; HYPOCHROMIA 2+; NEUTROPHILS 83 % (42.0-75.2); PLATELET ESTIMATE NORMAL (NORMAL)
--- NOTE | 2021-08-04 09:33 | NUR ---
PT RESTING IN BED. MORNING MEDICATIONS GIVEN. PT GRIMACES WHEN PALPATING ABD. SHIFT ASSESSMENT COMPLETED. CURRENTLY ON 3L VIA NC. PT ABLE TO ANSWER SOME ORIENTATION QUESTIONS CORRECTLY AND FOLLOWS COMMANDS WELL. PLANNING FOR MRI AND LP THIS AM. WILL CONTINUE TO MONITOR.
--- NOTE | 2021-08-04 11:49 | NUR ---
Received a call from patient's daughter, Katia. She states that she is running into problems because she does not have financial DPOA for her mother and [place] [facility] Katia has been made aware of the planned MRI and LP today and would like those to maybe give her answers about her mothers mental status decline. Katia is also aware that [place] will cover a stay at a nursing facility and was looking at [facility]. Katia does not know her mother's PCP or which home her father chose but did agree to have me call him to get answers. I also offered to have our financial counselor reach out to her in regards to switching [facility] and the financial DPOA issues. Call then made to Jose, the patient's partner. I informed him of her improvement and answering yes/no questions. I also told him there is a plan for MRI and LP today. I then told him of the issues we are running into with [facility] and that placement may be limited to [facility] or [facility] if they are not able to pay out of pocket for [facility]. Jose became very frustrated and stated that he would take her out of any nursing facility and bring her back here to the hospital. I tried to explain that that would revoke her hospice and that we don't provide hospice here either. I also tried to explain that I am worried about his health/back if he were to attempt to care for Michelle at home. Jose again expressed frustration and that he knows his daughter will do what she wants anyway and he is "fucking done" and proceeded to hang up on me. Notified SW of conversations and asked financial counselor to reach out to Katia. Unable to verify PCP or home selection with Will.
--- NOTE | 2021-08-04 12:34 | NUR ---
Received phone call from patient's daugther, Katia. She requests that no information be released to anyone other than her and her father, Will. Notified charge nurse and primary nurse of Katia's concern.
--- NOTE | 2021-08-04 14:48 | NUR ---
Patient moving around in bed and removing oxygen. I stepped in and asked her orientation questions. She was able to tell me she was in the hospital but thought she was in [place]. She requested to talk with Will and to get an iced tea. We also discussed her health condition and her understanding of everything going on. She was able to tell me she had a stage IV pancreatic mass but wasn't sure if she had any treatment options. I informed her that I had been in conversations with Jose and Katia and we had even discussed hospice care. JUDIT Live at bedside and we asked if the patient had any thoughts on placement in a facililty. She asked if there was a place in [place] she could go to because it is closer to [facility]. We also attempted to clarify DPOA but Gutierrezisabel was unable to explain to us what a DPOA is without drifing off and closing her eyes. We told her that we would talk with her more at a later time. I then called Will for her. He expressed gratitude for being able to talk with her and asked me questions about getting the DPOA and home health or home hospice options. I explained that it would be no different than before with the amount of help he has at home and that she was still a little too sleepy to get the DPOA updated but we would discuss it later. Updated SW on questions Will has.
--- NOTE | 2021-08-04 16:40 | NUR ---
Steam Shovel Engineer spoke with patient's daughter, Katia who advised she spoke with [facility] and they cannot take patient's insurance so patient's stay would be private pay with a sliding fee scale. Katia does not want to do this and would like referrals sent to [facility]. JUDIT faxed referrals. [facility] contacted SW and advised they do not have a hospice bed at this time. JUDIT collaborated with Cristina, Palliative RN who advised she got a call from patient's partner, Jose who is very upset about care home placement and does not agree with this. JUDIT contacted Katia who advised she is aware Will is upset, however there is nothing she can do about this and confirmed plan will be for care home placement. JUDIT and Palliative RN met with patient as she has become more alert. Patient expressed interest in [facility] in [place] as this is closer to [place]. Patient stated she was feeling wore out. JUDIT and Cristina attempted to discuss DPOA-HC with patient, however she was not able to verbalize what DPOA-HC means. Discharge Plan: Pending referrals to [facility] and [facility]
--- NOTE | 2021-08-04 20:30 | NUR ---
Initial shift assessment done- drowsy, oriented to person/place not year/time,, pleasant, falling back to sleep, tele on- tachy 108/min ,IV fluids of NS at 75cc/hr, O2 at 4L/nc, denies any pain tonight
[2021-08-05 04:05] VITALS: BP 166/65; PULSE 107; TEMP 98.2
--- NOTE | 2021-08-05 06:39 | NUR ---
Did get some sleep last night, VSS, did restart a new IV site to right hand 22g due to pain in the old INT site- tele on, Tachy 120 - Kylah HENDERSON was called to inform of pt overall HR 110-120 most of the night- no new orders.
[2021-08-05 07:51] VITALS: BP 155/67; PULSE 115; TEMP 98.8
[2021-08-05 09:53] LABS: MEAN CELL VOLUME 79 fl (80.0-100.0); MEAN CORPUSCULAR HGB CONC 31 g/dl (33.0-37.0); MEAN PLATELET VOLUME 12.2 fl (7.4-10.4); PLATELET COUNT 439 K/mm3 (130-400); RED BLOOD COUNT 3.89 M/mm3 (4.10-5.30); REDCELL DISTRIBUTION WIDTH-CV 17.2 % (11.5-14.5)
[2021-08-05 10:00] LABS: HEMATOCRIT 30.7 % (37.0-47.0); HEMOGLOBIN 9.4 g/dl (12.5-16.0); MEAN CORPUSCULAR HEMOGLOBIN 24 pg (27-31)
--- NOTE | 2021-08-05 10:06 | NUR ---
Pt assessment complete. Pt is laying in bed upon entry, she arouses to voice. She is A/O x4. Her breathing is even and unlabored on 2L O2 via NC. Pt denies any SOB. Pain to "pancreas", states Tylenol does not help. Pt quick to fall back asleep while talking to RN. She denies any N/V, states she tolerated breakfast without issues. IVF infusing without issues. Bed alarm in place.
[2021-08-05 10:09] LABS: ALBUMIN 1.3 gm/dL (3.4-4.8); BILIRUBIN,TOTAL 0.6 mg/dL (0.2-1.2); CALCIUM 7.8 mg/dL (8.4-10.2); CREATININE, serum 0.74 mg/dL (0.57-1.11); POTASSIUM 3.8 mmol/L (3.5-4.5); TOTAL PROTEIN 6.3 gm/dL (6.2-8.1)
[2021-08-05 10:27] LABS: BAND 1 % (0-10); LYMPHOCYTE 4 % (20.0-51.0); MICROCYTOSIS 1+; NEUTROPHILS 90 % (42.0-75.2)
[2021-08-05 10:28] LABS: ANISOCYTOSIS 1+; HYPOCHROMIA 3+; PLATELET ESTIMATE INCREASED (NORMAL)
--- NOTE | 2021-08-05 10:30 | NUR ---
Vancomycin Follow-up Pharmacy Note Current regimen: Vancomycin 1 gm IV q24h Vancomycin trough: 5.58 Adjustments: Increase Vancomycin to 1.25 gm IV q12h. Pharmacy will continue to closely monitor.
--- NOTE | 2021-08-05 10:58 | NUR ---
Call made to patient's daughter, Katia with JUDIT Montero. Patient has been accepted at [facility] if the pursue hospice. Katia verbalized that she is ready for her mother to go hospice and is okay with [facility]. She expressed concern that her father will fight it. I offered to call him with the update; Katia agreed. Kylah and I also discussed changing the patient's code status to DNR. Katia was emotional about it, sighting that her mother would want to be a code, but understands that under hospice she would need to be a DNR. Katia also expressed concern that her father would attempt to take the patient home. Kylah and I informed her that we can talk with [facility] and let them know the situation and they can work with her if anything comes up. Encouraged Katia to call with questions and agreed to update her with discharge time and how the conversation with Will goes.
--- NOTE | 2021-08-05 11:02 | NUR ---
Call made to patient's partner, Jose. Informed him that the patient was been unable to verbalize understanding of DPOA or medical representation forms and no signature has been obtained. Also explained to him what hospice means and that the patient has been accepted at [facility] with [place] [facility]. Will expressed frustration about the DPOA, stating he just wants to follow his 's wishes and plans to call a former office sweeper friend to see what he can legally do. He also asked me Michelle's prognosis if all these complications "at other hospitals" hadn't occured. I tried to explain that she has completed her treatment and the cancer is very aggressive and there is still no plan for chemotherapy or other treatment as she has only made minimal improvement throughout her stay here. Will proceeded to again state he "is done with all this" and hang up. Notified SW and care team of conversation.
--- NOTE | 2021-08-05 11:13 | NUR ---
Was informed by JUDIT that patient is scheduled for transport to [facility] at 1300 today. Call made to Katia. She verbalized understanding. Her only real worry now is about her Dad. She also stated that her son is planning to come visit around noon today but he doesn't know about all the conflict between his mother and grandfather. I offered to notify Katia of actual transport and she was thankful for the offer.
--- NOTE | 2021-08-05 11:17 | NUR ---
After speaking with social service worker, pt's daughter has decided to transition patient to hospice care.
[2021-08-05] MEDS ORDERED: OMNICEF 300MG300 MG PO (11:31)
[2021-08-05] MEDS ORDERED: NOVOLOG 100U100 U/M1 SQ (11:34)
[2021-08-05] MEDS ORDERED: ROXANOL 20MG20 MG/ML SL (11:36)
[2021-08-05] MEDS ORDERED: ATROPINE 2 ML2 ML SL (11:37)
[2021-08-05] MEDS ORDERED: ATIVAN 0.50.5 MG/TAB PO (11:38)
[2021-08-05 11:45] VITALS: BP 151/61; PULSE 101; TEMP 97.6
--- NOTE | 2021-08-05 12:10 | NUR ---
vamp cut out worker contacted the patient's daughter Katia via phone with palliative care Rn Cristina. Notified Katia that the physicians are ready to discharge the patient and we were needing her decision on if she wanted her mother to go on hospice or try SNF. Katia verbalized that she feels like her mother will not get strong enough for cancer treatment and feels like at this point she should transition to hospice. Notifed Katia that [facility] is willing to take her mother with hospice services and asked if she had a preferred hospice agency she would like to use. Katia verbalized that she doesn't know anything about the different agancies. Informed her that [facility] offent works with [place] and Katia verbalized her agreement with sending a referral to [facility]. Notified Katia that with hospice services, the patient's code status would need to be change from Full Code to DNR. Both myself and palliative care RN educate Katia on what a DNR would look like in terms of care. Katia become tearful but is understanding and is in agreement to making the patient a DNR. All other questions answered. Notified the patients RN and physicians of the above. JUDIT Alcaraz states that Ambrosio from [facility] informed her that they can pick the patient up at 1300. New covid swab requested. Patients clinical information and discharge orders faxed to Ambrosio at [facility]. In addition, the patients DPOA-HC listing her daughter Katia along with a [facility] authorization form that if able, the patient could fill out at a later time listing her daughter. Sindhu Evans notified Katia of patients transport time to [facility]. Patients clinical referral faxed to [facility]. Contacted Sukhdev with the above information and notified him of patients discharge. Sukhdev states that as soon as he got back to the office he would start working on it. Discharge plan: [facility] w/ hospice services from [place]
--- NOTE | 2021-08-05 13:33 | NUR ---
Call made to patient's daughter Katia to notify her of transpor to [facility]. She states she was able to talk with her mother earlier when Katia's son visited. She expressed gratitude for all the assistance provided throughout her mother's stay.
--- NOTE | 2021-08-05 13:41 | NUR ---
Pt report given [facility] at this time. Pt left with staff member.
== END 2021-08-05 13:41 | disposition hospice, inpatient (51) | DRG 871 ==
LOC: COL.ER 15:37 → MEDICAL 18:14
PROVIDERS: Emergency Medicine; Nurse Practitioner Family; ADMIT Internal Medicine
DX: A41.9 Sepsis, unspecified organism (principal); G93.41 Metabolic encephalopathy; C25.9 Malignant neoplasm of pancreas, unspecified; N39.0 Urinary tract infection, site not specified; C78.7 Secondary malignant neoplasm of liver and intrahepatic bile duct; J96.11 Chronic respiratory failure with hypoxia; J91.0 Malignant pleural effusion; R65.20 Severe sepsis without septic shock; Z66 Do not resuscitate; R32 Unspecified urinary incontinence; D50.9 Iron deficiency anemia, unspecified; E11.649 Type 2 diabetes mellitus with hypoglycemia without coma; I10 Essential (primary) hypertension; I25.10 Atherosclerotic heart disease of native coronary artery without angina pectoris; J45.909 Unspecified asthma, uncomplicated; D75.1 Secondary polycythemia; E78.5 Hyperlipidemia, unspecified; D75.839 Thrombocytosis, unspecified; E87.6 Hypokalemia; E83.52 Hypercalcemia; G47.30 Sleep apnea, unspecified; F43.10 Post-traumatic stress disorder, unspecified; F32.A Depression, unspecified; F17.210 Nicotine dependence, cigarettes, uncomplicated; E11.40 Type 2 diabetes mellitus with diabetic neuropathy, unspecified; K21.9 Gastro-esophageal reflux disease without esophagitis; N32.81 Overactive bladder; D63.8 Anemia in other chronic diseases classified elsewhere; B96.20 Unspecified Escherichia coli [E. coli] as the cause of diseases classified elsewhere; E11.65 Type 2 diabetes mellitus with hyperglycemia; Z86.718 Personal history of other venous thrombosis and embolism; Z79.82 Long term (current) use of aspirin; Z79.4 Long term (current) use of insulin; Z51.5 Encounter for palliative care; Z20.822 Contact with and (suspected) exposure to COVID-19; Z23 Encounter for immunization
CPT/HCPCS: 99232-AI; 99239; A9575; C9113; J0133; J0696; J1650; J1815; J2270; J3370; J3480; J7030; J7050; J7120; P9016; Q9967